=== PATIENT | female | born 1960 ===

== ENCOUNTER → 2020-01-22 | Outpatient (CLI) | payer OTHER ==
--- NOTE | 2020-01-22 17:28 | RAD ---
EXAM: Right lower extremity venous Doppler. HISTORY: Right lower extremity pain. Patient is a 59-year-old diabetic with persistent right lower leg pain following previous diagnosis of superficial venous thrombosis at [facility]. . COMPARISON: None available. FINDINGS: Grayscale and Doppler analysis of the both lower extremity deep venous systems was performed with graded compression and augmentation. The common femoral, greater saphenous, superficial femoral, popliteal and calf veins were assessed. There is no evidence of deep venous thrombosis. Superficial venous varicosities were identified in the medial right knee. Discussed with patient. She is [place]-speaking and had all her questions addressed to her satisfaction via industry operations investigator services by telephone at this visit IMPRESSION: 1. No evidence of deep venous thrombosis in the right lower extremity. Electronically signed by: Lon Mckenzie MD (01/22/2020 5:25 PM) [id number]
== END ==
LOC: US 15:47
PROVIDERS: ATTEND Family Medicine
DX: I83.811 Varicose veins of right lower extremity with pain (principal)
CPT/HCPCS: 93971